=== PATIENT | female | born 1935 | race Caucasian/White ===

== ENCOUNTER 2016-10-19 16:57 | Observation (INO) | payer MEDICARE ==
[~2016-10-19] VITALS: Ht 162.6 cm; Wt 109.5 kg
[~2016-10-19 16:57] MED LIST: ASPIRIN ADULT L81 M2 PO; FUROSEMIDE20 MG PO; LOSARTAN POT50 MG PO; MEDDOSEPAK PO; METFORMIN500 MG PO; PROAIR HFA IN; ROBITUSSIN AC10 ML PO; THEOPHYLLINE PO; ZPAK PO
--- NOTE | 2016-10-19 17:23 | NUR ---
PT ARRIVED VIA EMS FROM HOME TO ER ROOM 12.
[2016-10-19 17:48] LABS: HEMATOCRIT 33.5 % (37.0-47.0); HEMOGLOBIN 10.4 g/dl (12.0-16.0); IMMATURE GRANULOCYTES 0.3 % (0.0-1.0); NEUT# 6.74 thou/uL (2.00-7.15); RED BLOOD COUNT 3.85 mill/uL (4.20-5.60); RED CELL DISTRI WIDTH 14.3 % (11.5-15.5)
[2016-10-19 18:27] LABS: ANION GAP 12 (6-22 (CALC)); BUN 17 mg/dL (8-23); BUN/CREATININE RATIO 14 (12-20 (CALC)); CALCIUM 8.9 mg/dL (8.4-10.2); CARBON DIOXIDE 35 mmol/l (22-30); CHLORIDE 95 mmol/l (95-108); CREATININE 1.2 mg/dL (0.5-1.0); GFR 43 ML/MIN (>=60 (CALC)); GFR FOR AFR.AMER. 52 ML/MIN (>=60 (CALC)); GLUCOSE 139 mg/dL (82-115); POTASSIUM 4.3 mmol/l (3.5-5.1); SODIUM 138 mmol/l (137-146)
[2016-10-19] MEDS ORDERED: NEURONTIN100 MG PO (18:30)
[2016-10-19] MEDS ORDERED: GLIPIZIDE5 M2 PO ×2 (18:31→18:32)
[2016-10-19] MEDS ORDERED: BROVANA15 MCG/2 M (18:33)
[2016-10-19] MEDS ORDERED: FENTANYL25 MCG/HR TD (18:34)
[2016-10-19] MEDS ORDERED: PRESERVISION PO (18:35)
--- NOTE | 2016-10-19 18:55 | NUR ---
RECEIVED REPORT FROM XIN GALICIA. IN ROOM INTRODUCED SELF TO PT. NO C/O AT THIS TIME. RESP. EVEN AND UNLABORED. O2 ON AT 2 LIT/MIN NC O2 SAT 98%.
--- NOTE | 2016-10-19 19:31 | NUR ---
ASSISTED TO BSC CHAIR, VOIDING QS MARCUS URINE.
--- NOTE | 2016-10-19 19:32 | NUR ---
Admission Note Report Given to: SKINNY RODRIGUEZ Transported by: Wheelchair X Stretcher Transported with: X Nurse Transporter Patent IV X O2 X Transitional Care Manager
[2016-10-19 19:40] VITALS: BP 190/82
--- NOTE | 2016-10-19 19:40 | NUR ---
PT. TAKEN TO [facility] VIA STRETCHER, NO C/O.
--- NOTE | 2016-10-19 19:43 | NUR ---
PT ARRIVED TO FLOOR @1940 VIA STRETCHER WITH ER STAFF. FAMILY ALSO AT BEDSIDE. PT DENIES PAIN UPON ARRIVAL. SHORTNESS OF BREATH NOTED WITH EXERTION ON 2L OF OXYGEN. AMBULAED INDEPENDENTLY TO BED WITH SUPERVISION. ORIENTED TO ROOM AND CALL LIGHT SYSTEM. TELE IN PLACE. SAFETY MEASURES IN PLACE. CALL LIGHT SYSTEM REVIEWED AND IN REACH.
[2016-10-20] VITALS (8 sets, daily range): BP systolic 110–182; BP diastolic 53–88
[2016-10-20 00:08] LABS: URINE BILIRUBIN - DIPSTICK NEGATIVE (NEGATIVE); URINE BLOOD DIPSTICK NEGATIVE (NEGATIVE); URINE CLARITY CLEAR; URINE COLOR YELLOW; URINE GLUCOSE - DIPSTICK NEGATIVE (NEGATIVE); URINE KETONE NEGATIVE (NEGATIVE); URINE LEUK ESTERASE NEGATIVE (Negative); URINE NITRITE - DIPSTICK NEGATIVE (Negative); URINE PH 5.5 (4.5-8.0); URINE PROTEIN - DIPSTICK NEGATIVE (NEG-TRACE); URINE SPECIFIC GRAVITY <=1.005; URINE UROBILINOGEN - DIPSTICK 0.2 E.U./dL (0.2)
--- NOTE | 2016-10-20 00:38 | NUR ---
PT ASLEEP AT THIS TIME CPAP IN PLACE FOR SLEEPING. NO SIGNS OF DISTRESS NOTED. RESPIRATIONS EVEN AND UNLABORED ON 2.5L OF OXYGEN VIA NC. OXYGEN SATURATION AT 98%. UP TO BSC TO VOID NEEDED. EMS SITE FLUSHES AND APPEARS HEALTHY. SAFETY MEASURES IN PLACE. CALL LIGHT WITHIN REACH.
--- NOTE | 2016-10-20 04:23 | NUR ---
PT ASLEEP AT THIS TIME. NO SIGNS OF DISTRESS NOTED. RESPIRATIONS EVEN AND UNLABOARED. CPAP IN PLACE. ABT INFUSED WITH NO ADVERSE REACTIONS NOTED. PT USES CALL LIGHT FOR ASSISTANCE TO BSC. CALL LIGHT WITHIN REACH.
[2016-10-20 05:18] LABS: ALBUMIN 3.5 g/dL (3.2-5.0); BILIRUBIN, TOTAL 0.7 mg/dL (0.0-1.4); CALCIUM 9.3 mg/dL (8.4-10.2); CREATININE 1.1 mg/dL (0.5-1.0); POTASSIUM 4.1 mmol/l (3.5-5.1); TOTAL PROTEIN 6.6 g/dL (6.3-8.2)
[2016-10-20 05:54] LABS: HEMATOCRIT 33.4 % (37.0-47.0); HEMOGLOBIN 10.5 g/dl (12.0-16.0); IMMATURE GRANULOCYTES 0.3 % (0.0-1.0); MEAN CELL VOLUME 86.5 fL CALC (80.0-100.0); MEAN CORPUSCULAR HGB 27.2 pG CALC (26.0-32.0); MEAN CORPUSCULAR HGB CONC 31.4 g/L CALC (32.0-36.0); NEUT# 5.53 thou/uL (2.00-7.15); RED BLOOD COUNT 3.86 mill/uL (4.20-5.60); RED CELL DISTRI WIDTH 14.1 % (11.5-15.5)
--- NOTE | 2016-10-20 06:04 | NUR ---
PT HAD INCREASED SHORTNESS OF BREATH WITH LITTLE EXERTION OF REPOSITIONING TO A SITTING POSITION ON EDGE OF BED. SAT ON EDGE OF BED FOR SEVERAL MINUTES ATTEMPING TO CATCH HER BREATH WITH OXYGEN IN PLACE AT 2.5L (WHAT SHE WEARS AT HOME). 2 ATTEMPTS AT STANDING TO PIVOT ONTO BSC. BREATHING TREATMENT GIVEN BY RESPIRATORY WITH GOOD EFFECT AND CPAP REPLACED; PT BACK IN SEMI FOLWERS POSITION TO SLEEP. VS STABLE AFTER TREATMENT. EDUCATED TO BREATHING TECHNIQUES DURING THIS TIME.
--- NOTE | 2016-10-20 08:15 | NUR ---
PT SITTING ON SIDE OF BED; LABORED BREATHING; PT C/O ANXIETY AND SOB; DR. ARTIS IN TO SEE PT; PLAN OF CARE DISCUSSED; PT MEDICATED ORDERED; O2 2.5L VIA NC; CALL KIM WITHIN REACH; WILL CONTINUE TO MONITOR.
--- NOTE | 2016-10-20 09:40 | NUR ---
PT RESTING WITH EYES CLOSED; NO S/SX OF DISTRESS NOTED; CALL KIM WITHIN REACH; WILL CONTINUE TO MONITOR.
--- NOTE | 2016-10-20 11:00 | NUR ---
PT ASSISTED TO RECLINER; PT SOB WITH EXERTION; NO COMPLAINTS VOICED AT THIS TIME; CALL KIM WITHIN REACH; WILL CONTINUE TO MONITOR.
--- NOTE | 2016-10-20 14:00 | NUR ---
PT UP IN RECLINER; DAUGHTER IN TO VISIT; CALL KIM WITHIN REACH; WILL CONTINUE TO MONITOR.
--- NOTE | 2016-10-20 17:35 | NUR ---
PT.IN BED, NO S/S OF DISTRESS, TALKING W/FAMILY AT BS. PT.STATES THAT SHE IS "ANXIOUS," I REAASURED PT. AND MEDICATED ORDERS PROVIDE; FAMILY AT BS AND CALL LIGHT W/IN REACH. PT.INSTRUCTED TO CALL IF ANY NEEDS ARISE.
--- NOTE | 2016-10-20 21:00 | NUR ---
PT OOB TO BSC WITH ONE PERSON ASSISTANCE, A/O X3, RESPIRATIONS EVEN AND UNLABORED ON O2@2L VIA NC, NO SOB WITH ACTIVITY. VOIDING CLEAR YELLOW URINE, PM MEDS PROVIDED, CALL LIGHT IN REACH.
--- NOTE | 2016-10-21 00:29 | NUR ---
ROCEPHIN IV SPIKED AND INFUSING TO LAC WITH NO COMPLICATIONS. PT WEARING CPAP FOR BED TIME. NO CONCERNS VOICED.
--- NOTE | 2016-10-21 04:00 | NUR ---
OOB TO BSC VOIDING CLEAR YELLOW URINE, STANDBY ASSISTANCE.
[2016-10-21 04:44] VITALS: BP 138/74
[2016-10-21 06:16] LABS: HEMATOCRIT 33.5 % (37.0-47.0); HEMOGLOBIN 10.4 g/dl (12.0-16.0); IMMATURE GRANULOCYTES 0.2 % (0.0-1.0); NEUT# 5.27 thou/uL (2.00-7.15); RED BLOOD COUNT 3.85 mill/uL (4.20-5.60); RED CELL DISTRI WIDTH 14.3 % (11.5-15.5)
[2016-10-21 07:08] LABS: ALBUMIN 3.4 g/dL (3.2-5.0); ALKALINE PHOSPHATASE 152 u/l (38-126); ANION GAP 12 (6-22 (CALC)); BILIRUBIN, TOTAL 0.7 mg/dL (0.0-1.4); BUN 12 mg/dL (8-23); BUN/CREATININE RATIO 13 (12-20 (CALC)); CALCIUM 9.1 mg/dL (8.4-10.2); CARBON DIOXIDE 36 mmol/l (22-30); CHLORIDE 99 mmol/l (95-108); CREATININE 0.9 mg/dL (0.5-1.0); GFR 60 ML/MIN (>=60 (CALC)); GFR FOR AFR.AMER. > 60 ML/MIN (>=60 (CALC)); GLUCOSE 68 mg/dL (82-115); POTASSIUM 3.7 mmol/l (3.5-5.1); SGOT/AST 17 u/l (9-36); SGPT/ALT 26 u/l (11-66); SODIUM 143 mmol/l (137-146); TOTAL PROTEIN 6.5 g/dL (6.3-8.2)
[2016-10-21 08:45] VITALS: BP 138/49
[2016-10-21 12:28] VITALS: BP 152/75
[2016-10-21 15:14] VITALS: BP 133/72
[2016-10-21 19:11] VITALS: BP 125/64
--- NOTE | 2016-10-21 20:20 | NUR ---
PT IN BED RESPIRATIONS EVEN AND UNLABORED. DENIES PAIN OR DISCOMFORT.
--- NOTE | 2016-10-21 23:55 | NUR ---
CODE EXIT CLEARED PT TRANSFERRED BACK TO [facility] SURGE ROOM 269, ALL BELONGINS WITH PT.
[2016-10-22 03:12] VITALS: BP 119/66
--- NOTE | 2016-10-22 03:51 | NUR ---
RESTING WITH EYES CLOSED RESPIRATIONS EVEN AND UNLABORED.
[2016-10-22 05:01] LABS: HEMATOCRIT 34.3 % (37.0-47.0); HEMOGLOBIN 10.5 g/dl (12.0-16.0); IMMATURE GRANULOCYTES 0.3 % (0.0-1.0); MEAN CELL VOLUME 87.7 fL CALC (80.0-100.0); MEAN CORPUSCULAR HGB 26.9 pG CALC (26.0-32.0); MEAN CORPUSCULAR HGB CONC 30.6 g/L CALC (32.0-36.0); NEUT# 5.47 thou/uL (2.00-7.15); RED BLOOD COUNT 3.91 mill/uL (4.20-5.60); RED CELL DISTRI WIDTH 14.2 % (11.5-15.5)
[2016-10-22 05:09] LABS: ANION GAP 10 (6-22 (CALC)); BUN 12 mg/dL (8-23); BUN/CREATININE RATIO 13 (12-20 (CALC)); CALCIUM 8.7 mg/dL (8.4-10.2); CARBON DIOXIDE 37 mmol/l (22-30); CHLORIDE 99 mmol/l (95-108); CREATININE 0.9 mg/dL (0.5-1.0); GFR 60 ML/MIN (>=60 (CALC)); GFR FOR AFR.AMER. > 60 ML/MIN (>=60 (CALC)); GLUCOSE 60 mg/dL (82-115); POTASSIUM 3.5 mmol/l (3.5-5.1); SODIUM 141 mmol/l (137-146)
[2016-10-22 07:28] VITALS: BP 105/62
--- NOTE | 2016-10-22 11:10 | NUR ---
PT WAS SITTING ON THE SIDE OF THE BED NO DISTRESS NOTED. IV SITE IS FREE FROM REDNESS OR EDEMA.
--- NOTE | 2016-10-22 15:25 | NUR ---
PT IS RELAXING IN BED WITH NO DISTRESS NOTED. IV SITE IS FREE FROM REDNESS OR EDEMA. FAMILY IN THE ROOM. CONTINUE TO OSBERVE AND MONITOR.
[2016-10-22 15:31] VITALS: BP 151/54
--- NOTE | 2016-10-22 19:25 | NUR ---
PT. RESTING IN BED WITH NO DISTRESS NOTED. ASSESSMENT COMPLETED. IV SITE PATENT AND SL. PT. DENIES NEEDS/PAIN AT THIS TIME. O2 INFUSING PER NC PER ORDER. ENCOURAGED TO CALL FOR ANY NEEDS. PT. OFFERED NETTE HOSE STOCKINGS, DECLINES AT THIS TIME. WILL CONTINUE TO MONITOR, CALL LIGHT IS IN REACH.
[2016-10-22 19:50] VITALS: BP 131/50
--- NOTE | 2016-10-23 00:17 | NUR ---
PT. RESTING IN BED WITH EYES CLOSED. AWAKENED FOR SCHEDULED ROCEPHIN. PT. DENIES NEEDS/PAIN. ENCOURAGED TO CALL FOR ANY NEEDS.
--- NOTE | 2016-10-23 00:43 | NUR ---
PT. C/O LOWER BACK PAIN, OFFERED TO CALL DR. ARTIS FOR FURTHER PAIN MEDICATION ORDERS, PT. DECLINES WANTING THIS PIPE TESTING TECHNICIAN TO CALL MD. APPLIED WARM PACKS TO LOWER BACK PER PTS REQUEST. REMINDED PT. THAT FENTANYL PATCH IS TO BE CHANGED AT 0700, PT. REPORTS SHE DOES NOT WANT IT CHANGED AT THAT TIME, SHE WANTS TO WAIT UNTIL LATER IN THE MORNING AFTER SHE TAKES A SHOWER. PT. REPORTS 0700 IS TOO EARLY FOR HER SHOWER. WILL RELAY THIS TO DAYSHIFT NURSE IN REPORT. PT. INSTRUCTED TO CALL FOR ANY NEEDS. CALL LIGHT IS IN REACH.
--- NOTE | 2016-10-23 03:30 | NUR ---
PT. RESTING IN BED WITH EYES CLOSED, NO DISTRESS NOTED. RESP EVEN AND UNLABORED. CALL LIGHT IS IN REACH.
[2016-10-23 05:40] VITALS: BP 131/61
[2016-10-23 08:49] LABS: HEMATOCRIT 34.5 % (37.0-47.0); HEMOGLOBIN 10.4 g/dl (12.0-16.0); IMMATURE GRANULOCYTES 0.3 % (0.0-1.0); MEAN CELL VOLUME 89.6 fL CALC (80.0-100.0); MEAN CORPUSCULAR HGB CONC 30.1 g/L CALC (32.0-36.0); NEUT# 6.87 thou/uL (2.00-7.15); RED BLOOD COUNT 3.85 mill/uL (4.20-5.60); RED CELL DISTRI WIDTH 13.9 % (11.5-15.5)
[2016-10-23 09:09] LABS: ANION GAP 11 (6-22 (CALC)); BUN 11 mg/dL (8-23); BUN/CREATININE RATIO 11 (12-20 (CALC)); CALCIUM 8.7 mg/dL (8.4-10.2); CARBON DIOXIDE 36 mmol/l (22-30); CHLORIDE 99 mmol/l (95-108); GFR 53 ML/MIN (>=60 (CALC)); GFR FOR AFR.AMER. > 60 ML/MIN (>=60 (CALC)); GLUCOSE 165 mg/dL (82-115); SODIUM 142 mmol/l (137-146)
[2016-10-23 10:18] VITALS: BP 129/67
--- NOTE | 2016-10-23 11:30 | NUR ---
PT ASSISTED WITH SHOWER BY DAUGHTER; NO COMPLAINTS VOICED; CALL KIM WITHIN REACH; WILL CONTINUE TO MONITOR.
[2016-10-23 15:49] VITALS: BP 130/71
--- NOTE | 2016-10-23 17:11 | NUR ---
PT SITTING IN CHAIR; NO COMPLAINTS VOICED; CALL KIM WITHIN REACH; WILL CONTINUE TO MONITOR.
--- NOTE | 2016-10-23 19:00 | NUR ---
BEDSIDE REPORT RECEIVED FROM FRIDA MUELLER. PT UP TO BATHROOM AT THIS TIME WITH DAUGHTER AT BEDSIDE. DENIES PAIN CURRENTLY. REQUESTS PRN XANAX. SHORTNESS OF BREATH WITH EXERTION; EVEN AND UNLABORED AT REST WITH 2.5L OF OXYGEN VIA NC. PLAN OF CARE REVIEWED. PT ENCOURAGED TO VERBALIZE CONCERNS. STATES UNDERSTANDING. SAFETY MEASURES IN PLACE. CALL LIGHT WITHIN REACH.
[2016-10-23 19:39] VITALS: BP 137/64
--- NOTE | 2016-10-24 | NUR ---
PT ASLEEP AT THIS TIME. NO SIGNS OF DISTRESS NOTED. RESPIRATIONS EVEN AND UNLABORED; CPAP IN PLACE. ABT INFUSED WITH NO ADVERSE EFFECTS NOTED. IV SITE APPEARS HEALTHY. SAFETY MEASURES IN PLACE. CALL LIGHT WITHIN REACH.
[2016-10-24 04:50] VITALS: BP 99/70
--- NOTE | 2016-10-24 05:35 | NUR ---
PT ASLEEP AT THIS TIME. NO SIGNS OF DISTRESS NOTED. RESPIRATIONS EVEN AND UNLABORED WITH CPAP ON. NO CHANGES IN ASSESSMENT. CONDITION IS STABLE. SAFETY MEASURES IN PLACE. CALL LIGHT WITHIN REACH.
[2016-10-24 05:58] LABS: HEMATOCRIT 31.5 % (37.0-47.0); HEMOGLOBIN 9.6 g/dl (12.0-16.0); IMMATURE GRANULOCYTES 0.2 % (0.0-1.0); MEAN CORPUSCULAR HGB 27.1 pG CALC (26.0-32.0); MEAN CORPUSCULAR HGB CONC 30.5 g/L CALC (32.0-36.0); NEUT# 4.98 thou/uL (2.00-7.15); RED BLOOD COUNT 3.54 mill/uL (4.20-5.60)
[2016-10-24 06:24] LABS: ANION GAP 12 (6-22 (CALC)); BUN 12 mg/dL (8-23); BUN/CREATININE RATIO 12 (12-20 (CALC)); CALCIUM 8.7 mg/dL (8.4-10.2); CARBON DIOXIDE 34 mmol/l (22-30); CHLORIDE 99 mmol/l (95-108); GFR 53 ML/MIN (>=60 (CALC)); GFR FOR AFR.AMER. > 60 ML/MIN (>=60 (CALC)); GLUCOSE 81 mg/dL (82-115); POTASSIUM 3.8 mmol/l (3.5-5.1); SODIUM 140 mmol/l (137-146)
[2016-10-24 08:28] VITALS: BP 141/63
--- NOTE | 2016-10-24 13:53 | NUR ---
PT RESTING WITH EYES CLOSED; NO S/SX OF DISTRESS NOTED; CALL KIM WITHIN REACH; WILL CONTINUE TO MONITOR.
[2016-10-24 15:43] VITALS: BP 149/83
[2016-10-24 19:45] VITALS: BP 135/66
--- NOTE | 2016-10-24 19:59 | NUR ---
PT. RESTING IN BED ON LEFT SIDE WITH EYES OPEN. NO DISTRESS NOTED. DENIES NEEDS/PAIN. ASSESSMENT COMPLETED. SLIGHT PINK/REDNESS/WARMTH NOTED TO TOP OF LEFT FOOT, WILL CONITNUE TO MONITOR. O2 INFUSING PER NC PER ORDER. ENCOURAGED TO CALL FOR ANY NEEDS. CALL LIGHT IS IN REACH. WILL CONTINUE TO MONITOR.
--- NOTE | 2016-10-25 00:20 | NUR ---
PT. IS SITTING UP IN BED WITH NO DISTRESS NOTED. RESP EVEN AND UNLABORED. DENIES NEEDS. SCHEDULED ROCEPHIN HUNG AT THIS TIME. ENCOURAGED TO CALL FOR ANY NEEDS. CALL LIGHT IS IN REACH.
--- NOTE | 2016-10-25 03:03 | NUR ---
PT. IS RESTING IN BED ON RIGHT SIDE WITH EYES CLOSED; RESP EVEN AND UNLABORED; CPAP IS IN PLACE. CALL LIGHT IS IN REACH.
[2016-10-25 03:55] VITALS: BP 100/51
[2016-10-25 05:11] LABS: ALBUMIN 3.1 g/dL (3.2-5.0); ALKALINE PHOSPHATASE 150 u/l (38-126); ANION GAP 10 (6-22 (CALC)); BILIRUBIN, TOTAL 0.5 mg/dL (0.0-1.4); BUN 13 mg/dL (8-23); BUN/CREATININE RATIO 14 (12-20 (CALC)); CALCIUM 8.8 mg/dL (8.4-10.2); CARBON DIOXIDE 34 mmol/l (22-30); CHLORIDE 100 mmol/l (95-108); CREATININE 0.9 mg/dL (0.5-1.0); GFR 60 ML/MIN (>=60 (CALC)); GFR FOR AFR.AMER. > 60 ML/MIN (>=60 (CALC)); GLUCOSE 94 mg/dL (82-115); POTASSIUM 3.8 mmol/l (3.5-5.1); SGOT/AST 20 u/l (9-36); SGPT/ALT 38 u/l (11-66); SODIUM 140 mmol/l (137-146); TOTAL PROTEIN 5.9 g/dL (6.3-8.2)
[2016-10-25 05:22] LABS: HEMATOCRIT 30.8 % (37.0-47.0); HEMOGLOBIN 9.6 g/dl (12.0-16.0); IMMATURE GRANULOCYTES 0.8 % (0.0-1.0); MEAN CELL VOLUME 88.5 fL CALC (80.0-100.0); MEAN CORPUSCULAR HGB 27.6 pG CALC (26.0-32.0); MEAN CORPUSCULAR HGB CONC 31.2 g/L CALC (32.0-36.0); NEUT# 5.03 thou/uL (2.00-7.15); RED BLOOD COUNT 3.48 mill/uL (4.20-5.60); RED CELL DISTRI WIDTH 14.1 % (11.5-15.5)
--- NOTE | 2016-10-25 05:24 | NUR ---
PT. RESTING IN BED WITH EYES CLOSED, NO DISTRESS NOTED. RESP EVEN AND UNLABORED. CALL LIGHT IS IN REACH.
--- NOTE | 2016-10-25 08:30 | NUR ---
PT.UPRIGHT IN RECLINER EATING BREAKFAST, V/S ASSESSED. PT.DENIES ANY OTHER NEEDS AT THIS TIME, CALL LIGHT IS W/IN REACH; MEDICATIONS ADMINSTERED ORDERED FOR MORNING MEDS; PT.TOOK PHONE CALL I WAS EXITING ROOM
[2016-10-25 09:03] VITALS: BP 120/63
--- NOTE | 2016-10-25 11:38 | NUR ---
PT.SITTING ON SIDE OF BED VISITING W/FAMILY, DENIES ANY NEEDS AT THIS TIME, CALL LIGHT IS W/IN REACH
--- NOTE | 2016-10-25 12:35 | NUR ---
PT.DOWN TO XRAY ACCOMPANIED BY VOLUNTEER VIA WC, DAUGHTER AT BS
--- NOTE | 2016-10-25 14:45 | NUR ---
PT.DOWN TO XRAY VIA WC ACCOMPANIED BY VOLUNTEER, DAUGHTER AT BS
[2016-10-25 14:57] VITALS: BP 126/51
--- NOTE | 2016-10-25 15:48 | NUR ---
PT.IN BED W/TV ON, PT.IS SLEEPING, BUT AWOKE TO MY ENTERING ROOM, DENIES ANY NEEDS AT THIS TIME, CALL LIGHT W/IN REACH
--- NOTE | 2016-10-25 19:00 | NUR ---
INTRODUCED SELF TO PT, ALERT AND ORIENTED X3, DENIES NEEDS AT THIS TIME, NO DISTRESS NOTED, WILL FOLLOW UP WITH ASSESSMENT AND MED SCHEDULE, CALL KIM AT REACH. WILL CONTINUE TO MONITOR.
[2016-10-25 19:50] VITALS: BP 146/67
--- NOTE | 2016-10-25 23:59 | NUR ---
PT RESTING IN BED WEARING CIPAP, ALERT AND ORIENTED X3, NO DISTRESS NOTED, ROCEPHIN INFUSING AT THIS TIME WITHOUT DIFFICULTY, IV SITE IS PATENT. WILL CONTINUE TO MONITOR.
--- NOTE | 2016-10-26 04:20 | NUR ---
PT RESTING IN BED, VOICES NO COMPLAINTS, WEARING CIPAP, RESP ARE EVEN AND UNLABORED, NO S/S OF DISTRESS NOTED, VSS, WILL COTINUE TO MONITOR.
[2016-10-26 04:25] VITALS: BP 144/55
--- NOTE | 2016-10-26 06:34 | NUR ---
CALLED RT FOR A BREATHING TX, PT SITTING IN SIDE OF BED IN TRIPOD POSITION RECLINING ON BEDSIDE TABLE, RESP ARE LABORED, INSTRUCTED ON BREATHING TECH, PURSED LIP BREATHING, ON 2.5LPM OXYGEN VIA NC, WILL CONTINUE TO MONITOR.
--- NOTE | 2016-10-26 06:38 | NUR ---
RT IN PT ROOM ADMINISTERING A BREATHING TX.
[2016-10-26 11:58] LABS: C. DIFFICILE TOXIN A&B NEGATIVE (NEGATIVE)
[2016-10-26] MEDS ORDERED: ALPRAZOLAM XR0.5 MG PO (14:39)
--- NOTE | 2016-10-26 15:40 | NUR ---
DISCHARGE INSTRUCTIONS GIVEN AND VERBALIZED UNDERSTANDING., IV SITE DISCONTINEUD CATHETER INTACT. NO REDNESS OR EDEMA. ALL BELONGINGS SENT WITH PT AND FAMILY. CONTINUE TO OSBERVE AND MONITOR.
== END 2016-10-26 15:40 | disposition home or self-care (01) ==
LOC: ED 16:57 → ED-I 18:37 → ED 18:58 → MS2 18:59
PROVIDERS: Family Medicine; ADMIT Internal Medicine; ATTEND Internal Medicine Geriatric Medicine
DX: J44.1 Chronic obstructive pulmonary disease with (acute) exacerbation (principal); R07.9 Chest pain, unspecified; I10 Essential (primary) hypertension; I25.10 Atherosclerotic heart disease of native coronary artery without angina pectoris; I25.2 Old myocardial infarction; F41.9 Anxiety disorder, unspecified; K21.9 Gastro-esophageal reflux disease without esophagitis; M19.90 Unspecified osteoarthritis, unspecified site; E16.2 Hypoglycemia, unspecified; S32.059A Unspecified fracture of fifth lumbar vertebra, initial encounter for closed fracture; X58.XXXA Exposure to other specified factors, initial encounter; Y92.009 Unspecified place in unspecified non-institutional (private) residence as the place of occurrence of the external cause; M48.06 Spinal stenosis, lumbar region; Z59.1 Inadequate housing; Z99.81 Dependence on supplemental oxygen; Z85.41 Personal history of malignant neoplasm of cervix uteri
CPT/HCPCS: G0378

== ENCOUNTER 2017-02-23 10:07 | Emergency (ER) | payer MEDICARE ==
[~2017-02-23] VITALS: Ht 162.6 cm; Wt 109.0 kg
[~2017-02-23 10:07] MED LIST changes: +ALPRAZOLAM XR0.5 MG PO; +BROVANA15 MCG/2 M; +FENTANYL25 MCG/HR TD; +GLIPIZIDE5 M2 PO; +NEURONTIN100 MG PO; +PRESERVISION PO
[2017-02-23] MEDS ORDERED: VENTOLIN HFA IN (10:31)
[2017-02-23] MEDS ORDERED: LASIX 20 MG TAB20 MG PO (10:32)
[2017-02-23] MEDS ORDERED: BUDESONID2 IN (10:34)
[2017-02-23] MEDS ORDERED: DUONEB IN (10:35)
[2017-02-23 10:44] LABS: HEMATOCRIT 36.3 % (37.0-47.0); HEMOGLOBIN 11.2 g/dl (12.0-16.0); IMMATURE GRANULOCYTES 0.4 % (0.0-1.0); MEAN CELL VOLUME 86.2 fL CALC (80.0-100.0); MEAN CORPUSCULAR HGB 26.6 pG CALC (26.0-32.0); MEAN CORPUSCULAR HGB CONC 30.9 g/L CALC (32.0-36.0); NEUT# 6.79 thou/uL (2.00-7.15); RED BLOOD COUNT 4.21 mill/uL (4.20-5.60)
[2017-02-23 11:07] LABS: CALCIUM 9.3 mg/dL (8.4-10.2); CREATININE 1.2 mg/dL (0.5-1.0)
[2017-02-23 14:37] VITALS: BP 132/38
== END 2017-02-23 14:37 | disposition short-term general hospital (02) ==
LOC: ED 10:07
PROVIDERS: Family Medicine
DX: L03.213 Periorbital cellulitis (principal); H60.91 Unspecified otitis externa, right ear; R51 Headache; I10 Essential (primary) hypertension; J43.9 Emphysema, unspecified; F17.210 Nicotine dependence, cigarettes, uncomplicated; Z99.81 Dependence on supplemental oxygen

== ENCOUNTER → 2017-11-18 | Outpatient (REF) | payer MEDICARE ==
[~2017-11-18] MED LIST changes: +BUDESONID2 IN; +CEFTRIAXONE2 G1 IJ; +DUONEB IN; +LASIX 20 MG TAB20 MG PO; +VENTOLIN HFA IN
[2017-11-18 09:00] LABS: ALBUMIN 3.5 g/dL (3.2-5.0); BILIRUBIN, TOTAL 0.4 mg/dL (0.0-1.4); CHOLESTEROL HDL RATIO 3.3 (<4.4 (CALC)); CREATININE 1.2 mg/dL (0.5-1.0); POTASSIUM 4.1 mmol/l (3.5-5.1); TOTAL PROTEIN 6.5 g/dL (6.3-8.2)
== END | disposition home or self-care (01) ==
LOC: LAB 07:59
PROVIDERS: ATTEND Internal Medicine Geriatric Medicine
DX: I10 Essential (primary) hypertension (principal)

== ENCOUNTER 2018-03-06 13:06 | Inpatient (IN) | payer MEDICARE ==
[2018-03-06] VITALS (10 sets, daily range): BP systolic 117–156; BP diastolic 56–69
[~2018-03-06] VITALS: Ht 162.6 cm; Wt 111.6 kg
[2018-03-06 13:27] LABS: HEMATOCRIT 37.5 % (37.0-47.0); HEMOGLOBIN 11.2 g/dl (12.0-16.0); IMMATURE GRANULOCYTES 0.6 % (0.0-5.0); MEAN CELL VOLUME 95.7 fL CALC (80.0-100.0); MEAN CORPUSCULAR HGB 28.6 pG CALC (26.0-32.0); MEAN CORPUSCULAR HGB CONC 29.9 g/L CALC (32.0-36.0); NEUT# 10.61 thou/uL (2.00-7.15); RED BLOOD COUNT 3.92 mill/uL (4.20-5.60); RED CELL DISTRI WIDTH 13.7 % (11.5-15.5)
[2018-03-06 14:00] LABS: ALBUMIN 3.8 g/dL (3.2-5.0); BILIRUBIN, TOTAL 0.8 mg/dL (0.0-1.4); CREATININE 1.2 mg/dL (0.5-1.0); POTASSIUM 3.9 mmol/l (3.5-5.1); TOTAL PROTEIN 7.3 g/dL (6.3-8.2)
[2018-03-06] MEDS ORDERED: LOSARTAN POT50 MG PO (15:01)
[2018-03-07] VITALS (20 sets, daily range): BP systolic 108–161; BP diastolic 53–76
[2018-03-07 04:19] LABS: HEMATOCRIT 35.4 % (37.0-47.0); HEMOGLOBIN 10.7 g/dl (12.0-16.0); IMMATURE GRANULOCYTES 0.8 % (0.0-5.0); MEAN CELL VOLUME 94.7 fL CALC (80.0-100.0); MEAN CORPUSCULAR HGB 28.6 pG CALC (26.0-32.0); MEAN CORPUSCULAR HGB CONC 30.2 g/L CALC (32.0-36.0); NEUT# 9.47 thou/uL (2.00-7.15); RED BLOOD COUNT 3.74 mill/uL (4.20-5.60); RED CELL DISTRI WIDTH 13.3 % (11.5-15.5)
[2018-03-07 04:38] LABS: ALBUMIN 3.3 g/dL (3.2-5.0); BILIRUBIN, TOTAL 0.4 mg/dL (0.0-1.4); CREATININE 1.4 mg/dL (0.5-1.0); MAGNESIUM 1.9 mg/dL (1.6-2.3); POTASSIUM 4.5 mmol/l (3.5-5.1); TOTAL PROTEIN 6.2 g/dL (6.3-8.2)
[2018-03-08] VITALS (10 sets, daily range): BP systolic 107–153; BP diastolic 48–73
[2018-03-08 05:52] LABS: HEMATOCRIT 35.8 % (37.0-47.0); HEMOGLOBIN 10.9 g/dl (12.0-16.0); IMMATURE GRANULOCYTES 1.4 % (0.0-5.0); MEAN CELL VOLUME 94.2 fL CALC (80.0-100.0); MEAN CORPUSCULAR HGB 28.7 pG CALC (26.0-32.0); MEAN CORPUSCULAR HGB CONC 30.4 g/L CALC (32.0-36.0); NEUT# 8.48 thou/uL (2.00-7.15); RED BLOOD COUNT 3.8 mill/uL (4.20-5.60); RED CELL DISTRI WIDTH 13.6 % (11.5-15.5)
[2018-03-08 06:01] LABS: ALBUMIN 3.5 g/dL (3.2-5.0); BILIRUBIN, TOTAL 0.4 mg/dL (0.0-1.4); CREATININE 1.4 mg/dL (0.5-1.0); TOTAL PROTEIN 6.5 g/dL (6.3-8.2)
[2018-03-09 04:02] VITALS: BP 120/60
[2018-03-09 06:25] LABS: HEMATOCRIT 35.4 % (37.0-47.0); HEMOGLOBIN 10.7 g/dl (12.0-16.0); IMMATURE GRANULOCYTES 0.5 % (0.0-5.0); MEAN CELL VOLUME 94.1 fL CALC (80.0-100.0); MEAN CORPUSCULAR HGB 28.5 pG CALC (26.0-32.0); MEAN CORPUSCULAR HGB CONC 30.2 g/L CALC (32.0-36.0); NEUT# 6.81 thou/uL (2.00-7.15); RED BLOOD COUNT 3.76 mill/uL (4.20-5.60); RED CELL DISTRI WIDTH 13.6 % (11.5-15.5)
[2018-03-09 06:43] LABS: ALBUMIN 3.1 g/dL (3.2-5.0); BILIRUBIN, TOTAL 0.4 mg/dL (0.0-1.4); CREATININE 1.3 mg/dL (0.5-1.0); POTASSIUM 4.1 mmol/l (3.5-5.1)
[2018-03-09 09:01] VITALS: BP 135/46
[2018-03-09 15:10] VITALS: BP 151/71
[2018-03-09 20:09] VITALS: BP 144/53
[2018-03-10 03:23] VITALS: BP 140/73
[2018-03-10 04:41] LABS: HEMATOCRIT 34.7 % (37.0-47.0); HEMOGLOBIN 10.5 g/dl (12.0-16.0); IMMATURE GRANULOCYTES 0.5 % (0.0-5.0); MEAN CELL VOLUME 93.8 fL CALC (80.0-100.0); MEAN CORPUSCULAR HGB 28.4 pG CALC (26.0-32.0); MEAN CORPUSCULAR HGB CONC 30.3 g/L CALC (32.0-36.0); NEUT# 5.57 thou/uL (2.00-7.15); RED BLOOD COUNT 3.7 mill/uL (4.20-5.60); RED CELL DISTRI WIDTH 13.5 % (11.5-15.5)
[2018-03-10 05:01] LABS: ALBUMIN 3.2 g/dL (3.2-5.0); BILIRUBIN, TOTAL 0.5 mg/dL (0.0-1.4); CREATININE 1.1 mg/dL (0.5-1.0); POTASSIUM 3.9 mmol/l (3.5-5.1); TOTAL PROTEIN 6.1 g/dL (6.3-8.2)
[2018-03-10 08:26] VITALS: BP 157/71
[2018-03-10 16:24] VITALS: BP 154/78
== END 2018-03-10 18:05 | disposition home health service (06) | DRG 191 ==
LOC: ED 13:06 → ED-I 14:44 → ED 15:39 → ICU 15:40 → MS2 03-08 17:44
PROVIDERS: Emergency Medicine; ADMIT Internal Medicine Geriatric Medicine; ATTEND Internal Medicine Nephrology
PROC: 5A09357 Assistance with Respiratory Ventilation, Less than 24 Consecutive Hours, Continuous Positive Airway Pressure (ICD-10-PCS; principal; 2018-03-06)
DX: J44.1 Chronic obstructive pulmonary disease with (acute) exacerbation (principal); Z68.41 Body mass index [BMI] 40.0-44.9, adult; I12.9 Hypertensive chronic kidney disease with stage 1 through stage 4 chronic kidney disease, or unspecified chronic kidney disease; E11.22 Type 2 diabetes mellitus with diabetic chronic kidney disease; N18.3 Chronic kidney disease, stage 3 (moderate); E11.40 Type 2 diabetes mellitus with diabetic neuropathy, unspecified; E78.5 Hyperlipidemia, unspecified; E66.9 Obesity, unspecified; D63.8 Anemia in other chronic diseases classified elsewhere; M48.061 Spinal stenosis, lumbar region without neurogenic claudication; G47.30 Sleep apnea, unspecified; M48.56XD Collapsed vertebra, not elsewhere classified, lumbar region, subsequent encounter for fracture with routine healing; F41.9 Anxiety disorder, unspecified; Z99.81 Dependence on supplemental oxygen
CPT/HCPCS: J1650

== ENCOUNTER 2019-04-06 | Emergency (ER) | payer MEDICARE ==
[2019-04-06 15:37] LABS: HEMATOCRIT 37.2 % (37.0-47.0); HEMOGLOBIN 11.6 g/dl (12.0-16.0); IMMATURE GRANULOCYTES 0.5 % (0.0-5.0); MEAN CELL VOLUME 88.4 fL CALC (80.0-100.0); MEAN CORPUSCULAR HGB 27.6 pG CALC (26.0-32.0); MEAN CORPUSCULAR HGB CONC 31.2 g/L CALC (32.0-36.0); NEUT# 9.23 thou/uL (2.00-7.15); RED BLOOD COUNT 4.21 mill/uL (4.20-5.60); RED CELL DISTRI WIDTH 13.3 % (11.5-15.5)
[2019-04-06 15:56] LABS: ANION GAP 14 (6-22 (CALC)); BUN 27 mg/dL (8-23); BUN/CREATININE RATIO 22 (12-20 (CALC)); CARBON DIOXIDE 28 mmol/l (22-30); CHLORIDE 97 mmol/l (95-108); CREATININE 1.2 mg/dL (0.5-1.0); GFR 43 ML/MIN (>=60 (CALC)); GFR FOR AFR.AMER. 52 ML/MIN (>=60 (CALC)); POTASSIUM 4.8 mmol/l (3.5-5.1); SODIUM 133 mmol/l (137-146)
[2019-04-06] MEDS ORDERED: PROAIR HFA108 MCG/AC PO ×2 (16:53)
[2019-04-06] MEDS ORDERED: ZPAK PO (16:53)
[2019-04-06] MEDS ORDERED: PREDNISONE50 MG PO ×2 (16:53)
[2019-04-06] MEDS ORDERED: ALENDRONATE SOD70 MG PO (17:37)
[2019-04-06] MEDS ORDERED: VITAMIN D31000 UNI1 PO (17:37)
[2019-04-06] MEDS ORDERED: SPIRIVA HANDIH18 MCG (17:38)
== END 2019-04-06 17:40 | disposition home or self-care (01) ==
PROVIDERS: Family Medicine
DX: J43.9 Emphysema, unspecified (principal); E11.9 Type 2 diabetes mellitus without complications; I10 Essential (primary) hypertension; F17.210 Nicotine dependence, cigarettes, uncomplicated; Z79.84 Long term (current) use of oral hypoglycemic drugs; Z99.81 Dependence on supplemental oxygen

== ENCOUNTER 2019-10-24 08:54 | Emergency (ER) | payer MEDICARE ==
[~2019-10-24] VITALS: Ht 162.6 cm; Wt 100.0 kg
[~2019-10-24 08:54] MED LIST changes: +ALENDRONATE SOD70 MG PO; +PREDNISONE50 MG PO; +PROAIR HFA108 MCG/AC PO; +SPIRIVA HANDIH18 MCG; +VITAMIN D31000 UNI1 PO
[2019-10-24] MEDS ORDERED: GLIPIZIDE5 MG PO (09:28)
[2019-10-24] MEDS ORDERED: ASPIRIN ADULT L81 M2 PO (09:29)
[2019-10-24 09:31] LABS: HEMATOCRIT 37.8 % (37.0-47.0); HEMOGLOBIN 10.9 g/dl (12.0-16.0); IMMATURE GRANULOCYTES 0.3 % (0.0-5.0); MEAN CELL VOLUME 93.3 fL CALC (80.0-100.0); MEAN CORPUSCULAR HGB 26.9 pG CALC (26.0-32.0); MEAN CORPUSCULAR HGB CONC 28.8 g/dL CAL (32.0-36.0); NEUT# 8.71 thou/uL (2.00-7.15); RED BLOOD COUNT 4.05 mill/uL (4.20-5.60); RED CELL DISTRI WIDTH 13.4 % (11.5-15.5)
[2019-10-24] MEDS ORDERED: FERR SULFATE325 MG PO (09:33)
[2019-10-24] MEDS ORDERED: VENTOLIN HFA IN (09:34)
[2019-10-24 09:44] LABS: ALBUMIN 3.7 g/dL (3.2-5.0); ALKALINE PHOSPHATASE 93 u/l (38-126); ANION GAP 6 (6-22 (CALC)); BILIRUBIN, TOTAL 0.7 mg/dL (0.0-1.4); BUN 25 mg/dL (8-23); BUN/CREATININE RATIO 21 (12-20 (CALC)); CHLORIDE 98 mmol/l (95-108); CREATININE 1.2 mg/dL (0.5-1.0); GFR 43 ML/MIN (>=60 (CALC)); GFR FOR AFR.AMER. 52 ML/MIN (>=60 (CALC)); LIPASE 38 u/l (23-300); POTASSIUM 4.5 mmol/l (3.5-5.1); SGOT/AST 22 u/l (9-36); SODIUM 135 mmol/l (137-146); TOTAL PROTEIN 6.9 g/dL (6.3-8.2)
[2019-10-24 09:47] LABS: CARBON DIOXIDE 36 mmol/l (22-30)
[2019-10-24] MEDS ORDERED: MEDDOSEPAK PO (10:42)
[2019-10-24] MEDS ORDERED: ZITHROMAX250 MG PO (10:42)
[2019-10-24 10:47] VITALS: BP 159/78
== END 2019-10-24 10:49 | disposition home or self-care (01) ==
LOC: EDBD 08:54 → ED 08:54
DX: J43.9 Emphysema, unspecified (principal); E11.9 Type 2 diabetes mellitus without complications; F17.200 Nicotine dependence, unspecified, uncomplicated; Z79.84 Long term (current) use of oral hypoglycemic drugs; Z99.81 Dependence on supplemental oxygen; R06.02 Shortness of breath

== ENCOUNTER 2020-04-25 16:41 | Observation (INO) | payer MEDICARE ==
[~2020-04-25] VITALS: Ht 162.6 cm; Wt 111.0 kg
[~2020-04-25 16:41] MED LIST changes: -BROVANA15 MCG/2 M; +BROVANA15 MCG/2 M PO; +FERR SULFATE325 MG PO; +GLIPIZIDE5 MG PO; +ZITHROMAX250 MG PO
--- NOTE | 2020-04-25 16:45 | NUR ---
PT TO ROOM 16 VIA WHEELCHAIR. BEDSIDE TRIAGE COMPLETED
[2020-04-25 17:46] LABS: HEMATOCRIT 39.4 % (37.0-47.0); HEMOGLOBIN 11.6 g/dl (12.0-16.0); IMMATURE GRANULOCYTES 0.6 % (0.0-5.0); MEAN CELL VOLUME 93.1 fL CALC (80.0-100.0); MEAN CORPUSCULAR HGB 27.4 pG CALC (26.0-32.0); MEAN CORPUSCULAR HGB CONC 29.4 g/dL CAL (32.0-36.0); NEUT# 10.14 thou/uL (2.00-7.15); RED BLOOD COUNT 4.23 mill/uL (4.20-5.60); RED CELL DISTRI WIDTH 13.2 % (11.5-15.5)
--- NOTE | 2020-04-25 17:51 | NUR ---
POC REVIEWED. PATIENT CALL KIM IN REACH
--- NOTE | 2020-04-25 18:00 | NUR ---
DR ANTHONY SPOKE TO PATIENT AND DAUGHTER REGARDING CTA AND CONTRAST ALLERGY. PATIENT AGREES TO HAVE DECADRON AND BENADRYL IV PRIOR TO CT A PREVENTATIVE MEASURE FOR RX.
[2020-04-25 18:01] LABS: ALBUMIN 4.1 g/dL (3.2-5.0); ALKALINE PHOSPHATASE 103 u/l (38-126); BILIRUBIN, TOTAL 0.9 mg/dL (0.0-1.4); BUN 27 mg/dL (8-23); BUN/CREATININE RATIO 19 (12-20 (CALC)); CHLORIDE 89 mmol/l (95-108); CREATININE 1.4 mg/dL (0.5-1.0); GFR 36 ML/MIN (>=60 (CALC)); GFR FOR AFR.AMER. 43 ML/MIN (>=60 (CALC)); LIPASE 34 u/l (23-300); SGOT/AST 17 u/l (9-36); SODIUM 133 mmol/l (137-146); TOTAL PROTEIN 7.6 g/dL (6.3-8.2)
[2020-04-25 18:02] LABS: INTERNATIONAL NORMALIZED RATIO 0.9 RATIO (0.7-1.3); PROTHROMBIN TIME 9.4 SECONDS (9.0-12.5)
[2020-04-25 18:05] LABS: C-REACTIVE PROTEIN 4.2 mg/dL (0-0.9)
[2020-04-25 18:09] LABS: ANION GAP 8 (6-22 (CALC)); POTASSIUM 5.2 mmol/l (3.5-5.1)
[2020-04-25 18:10] LABS: CARBON DIOXIDE 41 mmol/l (22-30)
--- NOTE | 2020-04-25 18:48 | NUR ---
REPORT TO GORDON IN SBAR FORMAT. PATIENT STABLE. AWAITING TESTING.
--- NOTE | 2020-04-25 18:50 | NUR ---
PT REPORT RECEIVED FROM MELISSA GALICIA
--- NOTE | 2020-04-25 19:05 | NUR ---
INTRODUCED SELF TO PT AND DAUGHTER AND REPORT SOB THAT STARTED YESTERDAY AND WAS ADVISED BY HER PCP TO COME TO ER. PT ON BIPAP MACHINE CURRENTLY AT 35% O2 AND TOLERATING WELL. DISCUSSED WITH DAUGHTER AND PT WAIT TIME FOR CONT RESULTS AND PLAN OF CARE. VERBALIZED UNDERSTANDING. DENIES FURTHER NEEDS. CALL LIGHT WITHIN REACH.
--- NOTE | 2020-04-25 19:45 | NUR ---
PT SITTING ON EDGE OF STRETCHER FOR COMFORT. PT VERBALIZES NO COMPLAINTS AT THIS TIME. DISCUSSED WITH PT AND DAUGHTER WAIT TIME FOR TRANSPORTATION TO ICU. VEBARLIZED UNDERSTANDING. DENIES ANY FURTHER NEEDS. CALL LIGHT WITHIN REACH. CREATIVE ART THERAPIST IN PLACE.
[2020-04-25] MEDS ORDERED: PREDNISONE20 MG PO (19:48)
--- NOTE | 2020-04-25 19:53 | NUR ---
REPORT PROVIDED TO ADELIA GALICIA IN ICU
--- NOTE | 2020-04-25 20:20 | NUR ---
Admission Note Report Given to: ADELIA RN Transported by: Wheelchair X Stretcher Transported with: X Nurse Transporter X Patent IV X O2 X Research Investigator Location: X ICU MS2 PT TRANSPORTED TO ICU BY SOFÍA GALICIA SEAT COVER MAKER WITH RT AND BIPAP IN PLACE IN STABLE CONDITION..
[2020-04-25 20:45] VITALS: BP 224/82
[2020-04-25 21:00] VITALS: BP 178/75
[2020-04-25 21:15] VITALS: BP 175/97
[2020-04-25 21:30] VITALS: BP 134/79
--- NOTE | 2020-04-25 21:30 | NUR ---
PT ARRIVED TO ICU3 VIA STRETCHER ACCOMPANIED BY RT WITH BIPAP ON AT 2051. PT IS A&OX4, LIVES WITH DAUGHTER WHO DIRECTOR OF MIDWIFERY/STAFF MIDWIFE SPOKE WITH AFTER SETTLING PATIENT IN ROOM. VSS, AFEBRILE, SR ON MONITOR HR 94.
[2020-04-25 21:45] VITALS: BP 163/80
--- NOTE | 2020-04-25 22:00 | NUR ---
PT OFF BIPAP TO EAT, 4L NC ON AT THIS TIME. ASSIST PT TO BSC PRIOR TO GOING BACK ON BIPAP FOR THE NIGHT. PT HAD MINIMAL OUTPUT. TISSUE COORDINATOR PERFORMED BLADDER SCAN TO CHECK FOR RETENTION. 0 VOLUME SHOWN ON SCANNER. WILL CONTINUE TO MONITOR.
[2020-04-25 23:00] VITALS: BP 181/61
[2020-04-26] VITALS (16 sets, daily range): BP systolic 130–190; BP diastolic 56–91
--- NOTE | 2020-04-26 00:15 | NUR ---
PT RIGHT SIDE LAYING, SLEEPING WITH BIPAP ON AT THIS TIME. NO OBSERVABLE S/S OF DISTRESS NOTED. VSS, AFEBRILE. SR ON , 02 AT 91% RR 19.
--- NOTE | 2020-04-26 02:00 | NUR ---
PT RIGHT SIDE LAYING W/BIPAP ON. RR EVEN/UNLABORED. VSS STABLE. SR ON MONITOR.
--- NOTE | 2020-04-26 04:09 | NUR ---
PT REMAINS ASLEEP WITH BIPAP ON AT THIS TIME. RR EVEN AND UNLABORED. VSS STABLE. SR ON MONITOR.
--- NOTE | 2020-04-26 05:55 | NUR ---
PT REMAINS SLEEPING ON RIGHT SIDE WITH BIPAP, EVEN UNLABORED RESPIRATIONS. SR ON MONITOR, VSS. NO S/S OF DISTRESS OR PAIN NOTED.
[2020-04-26 06:38] LABS: CREATININE 1.2 mg/dL (0.5-1.0); MAGNESIUM 2.1 mg/dL (1.6-2.3)
[2020-04-26 06:39] LABS: POTASSIUM 5.4 mmol/l (3.5-5.1)
--- NOTE | 2020-04-26 06:45 | NUR ---
RECIEVED REPORT FROM FRIDA DELVALLE. ASSUMED PT CARE.
--- NOTE | 2020-04-26 07:40 | NUR ---
PT RESTING IN BED WITH EYES CLOSED, BIPAP IN PLACE.
--- NOTE | 2020-04-26 09:51 | NUR ---
PT ASSISTED TO BSC, BIPA INTACT. PT TOLERATED TRANSFER WELL. CALL LIGHT IN REACH. WILL MONITOR.
--- NOTE | 2020-04-26 09:58 | NUR ---
PT SWITCHED FROM BIPAP TO 4LPM/NC, PT TOLERATED WELL.
--- NOTE | 2020-04-26 11:00 | NUR ---
DR. DIOP AT BEDSIDE FOR ASSESSMENT AND TO DISCUSS PLAN OF CARE. DR. DIOP CALLED AND SPOKE WITH PT DAUGHTER REA FOR HISTORY.
--- NOTE | 2020-04-26 12:03 | NUR ---
PT SITTING UP IN RECLINER EATING LUNCH, WILL MONITOR.
--- NOTE | 2020-04-26 12:44 | NUR ---
PT DAUGHTER REA CALLED WITH CODE, UPDATE GIVEN.
--- NOTE | 2020-04-26 15:23 | NUR ---
PT ASSISTED BACK TO BED. PT TOLERATED TRANSFER WELL. CALL LIGHT IN REACH.
--- NOTE | 2020-04-26 17:09 | NUR ---
DR. DIOP NOTIFIED AT PT REQUEST, NEW ORDERS RECEIVED. PT MEDICATED FOR INCREASED ANXIETY ORDERED PER PT REQUEST. CALL LIGHT IN REACH. WILL MONITOR.
--- NOTE | 2020-04-26 18:14 | NUR ---
PT DAUGHTER AT BEDSIDE FOR VISIT.
--- NOTE | 2020-04-26 19:15 | NUR ---
PT DANGLING AT BEDSIDE, REQUEST ASSIST UP TO BSC AT THIS TIME. PT APPEARS RELAXED W/O S/S OF SOB AT THIS TIME. VSS, SR ON MONITOR AND PT REMAINS AFEBRILE. PT REQUESTS NIGHT TIME MEDICATIONS SHE STATES " I AM READY TO TAKE MY NIGHT TIME MEDICATIONS, GET A BREATHING TREATMENT BEFORE GOING ON THE BIPAP. I AM READY FOR BED" EDUCATED PT ON MEDICATION SCHEDULE, IN WHICH SHE ACKNOWLEDGED UNDERSTANDING OF.
--- NOTE | 2020-04-26 20:30 | NUR ---
PT CALLED FOR ASSISTANCE UP TO BSC, STATES SHE FEELS SOB AT THIS TIME. O2 SATS ON MONITOR SHOW 02 IS 98-100% ON 4l NC. ENCOURAGED PT TO USE PURSE LIP BREATHING TO SLOW AND CONTROL HER RR. VSS AND PT REMAINS AFEBRILE AT THIS TIME. LS DIMINISHED THROUGHOUT WITH EXPERIRATORY WHEEZES NOTED. PT HAS LOOSE/COARSE NON PRODUCTIVE COUGH THAT SHE STATES SHE TAKES MUCINEX FOR AT HOME DAILY. NOTIFIED RESPIRATORY PT REQUEST NEB TREATMENT BEFORE BIPAP.
--- NOTE | 2020-04-26 22:33 | NUR ---
PT LYING ON RIGHT SIDE ASLEEP WITH BIPAP ON AT THIS TIME. RESPIRATIONS EVEN/UNLABORED, NO OBSERVABLE DISTRESS NOTED. SR ON MONITOR AT THIS TIME.
[2020-04-27] VITALS (16 sets, daily range): BP systolic 104–191; BP diastolic 54–91
--- NOTE | 2020-04-27 00:30 | NUR ---
PT RIGHT SIDE LYING WITH BIPAP ON, RR REMAIN EVEN/UNLABORED. SR ON MONITOR. APPEARS TO BE SLEEPING COMFORTABLY.
--- NOTE | 2020-04-27 02:30 | NUR ---
PT CONTINUES TO REST WELL, VSS, NO S/S OF DISTRESS OR DISCOMFORT NOTED. BIPAP ON. SR ON MONITOR.
--- NOTE | 2020-04-27 05:00 | NUR ---
PT STATES SHE IS COLD/REQUESTS WARM BLANKET. DENIES SOB AT THIS TIME. CONTINUES TO BE SR ON MONITOR W/BIPAP.
[2020-04-27 05:25] LABS: HEMATOCRIT 36.8 % (37.0-47.0); MEAN CELL VOLUME 91.5 fL CALC (80.0-100.0); MEAN CORPUSCULAR HGB 27.4 pG CALC (26.0-32.0); MEAN CORPUSCULAR HGB CONC 29.9 g/dL CAL (32.0-36.0); RED BLOOD COUNT 4.02 mill/uL (4.20-5.60); RED CELL DISTRI WIDTH 13.1 % (11.5-15.5)
[2020-04-27 05:48] LABS: CREATININE 1.2 mg/dL (0.5-1.0)
[2020-04-27 05:51] LABS: POTASSIUM 5.3 mmol/l (3.5-5.1)
--- NOTE | 2020-04-27 07:02 | NUR ---
PT REPORT RECEIVED FROM CLERK OF COURT, PT SLEEPING AT THIS TIME.
--- NOTE | 2020-04-27 07:25 | NUR ---
BIPAP STANDBY. PLACED ON 4L NC.
--- NOTE | 2020-04-27 09:35 | NUR ---
PT UP TO RECLINER, INFORMED DR. DIOP THAT SHE IS READY TO GO HOME.
[2020-04-27] MEDS ORDERED: ZITHROMAX250 MG PO (11:16)
--- NOTE | 2020-04-27 11:39 | NUR ---
NOTIFIED DAUGHTER THAT PT WAS GOING TO BE DISCHARGED. DAUGHTER STATES SHE LIVES WITH HER AND SHE IS AT WORK NOW, AND WILL COME TO PICK HER UP AROUND 6 TONIGHT
--- NOTE | 2020-04-27 12:37 | NUR ---
SITTING UP IN RECLINER, EATING LUNCH, NO COMPLAINTS AT THIS TIME.
--- NOTE | 2020-04-27 16:16 | NUR ---
DAUGHTER CALLED AND STATES SHE JUST MADE IT HOME AND WILL BE COMING TO HOT ROOM ATTENDANT PT SOON POSSIBLE. IV D/C'S FROM PT. AND DISCHARGE PAPERS ARE TY;ED UP READY TO GO OVER WITH DAUGHTER AND PT.
== END 2020-04-27 16:50 | disposition home health service (06) ==
LOC: ED 16:41 → ED-I 18:30 → ED 18:50 → ICU 18:51
PROVIDERS: Family Medicine; ADMIT Internal Medicine; ATTEND Internal Medicine
PROC: 5A09457 Assistance with Respiratory Ventilation, 24-96 Consecutive Hours, Continuous Positive Airway Pressure (ICD-10-PCS; principal; 2020-04-25)
DX: J43.9 Emphysema, unspecified (principal); J96.22 Acute and chronic respiratory failure with hypercapnia; J96.21 Acute and chronic respiratory failure with hypoxia; I12.9 Hypertensive chronic kidney disease with stage 1 through stage 4 chronic kidney disease, or unspecified chronic kidney disease; E11.22 Type 2 diabetes mellitus with diabetic chronic kidney disease; N18.30 Chronic kidney disease, stage 3 unspecified; E11.40 Type 2 diabetes mellitus with diabetic neuropathy, unspecified; H54.8 Legal blindness, as defined in USA; F17.200 Nicotine dependence, unspecified, uncomplicated; H35.30 Unspecified macular degeneration; Z99.81 Dependence on supplemental oxygen; Z85.41 Personal history of malignant neoplasm of cervix uteri; Z79.84 Long term (current) use of oral hypoglycemic drugs; Z79.52 Long term (current) use of systemic steroids; Z20.822 Contact with and (suspected) exposure to COVID-19
CPT/HCPCS: J1650